=== PATIENT | male | born 1975 | race African-American/Black ===

== ENCOUNTER 2017-08-09 13:58 | Emergency (ER) | payer MEDICAID, OTHER ==
[~2017-08-09] VITALS: Ht 193 cm; Wt 169.1 kg
[~2017-08-09 13:58] MED LIST: ASPI-556 PO; CARV25 PO; FURO40 PO; INSU100V12 SQ; KDUR10 PO; LISI-662 PO
[2017-08-09] MEDS ORDERED: INSLAN SQ (14:22)
[2017-08-09] MEDS ORDERED: CHLO4TAB96 PO (14:22)
[2017-08-09] MEDS ORDERED: SIMV-259 PO (14:22)
[2017-08-09 14:24] LABS: GLUCOSE,POINT OF CARE 234 MG/DL (70-110)
[2017-08-09 16:51] LABS: BASOPHILS % (AUTO) 0.6 % (0.0-2.0); EOSINOPHILS % (AUTO) 2.9 % (1.0-6.0); HEMATOCRIT 40.6 % (41-53); HEMOGLOBIN 13.7 g/dL (13.5-17.5); LYMPHOCYTES # (AUTO) 1.6 K/uL (1.0-4.8); LYMPHOCYTES % (AUTO) 27.2 % (22.0-44.0); MEAN CORPUSCULAR HEMOGLOBIN 29.1 pg (26.0-34.0); MEAN CORPUSCULAR HGB CONC 33.7 G/dL (31.0-37.0); MEAN CORPUSCULAR VOLUME 87 fL (80-100); MONOCYTES # (AUTO) 0.6 K/uL (0.1-1.0); MONOCYTES % (AUTO) 9.6 % (2.0-9.0); NEUTROPHILS # (AUTO) 3.6 K/uL (1.8-7.7); NEUTROPHILS % (AUTO) 59.7 % (40.0-70.0); PLATELET COUNT (AUTO) 189 K/uL (150-450); RED BLOOD CELL COUNT(AUTO) 4.69 MIL/uL (4.50-5.90); RED CELL DISTRIBUTION WIDTH 14.3 % (11.5-14.5)
[2017-08-09] MEDS ORDERED: SODIUM CHLORIDE 0.9% 100 ML ONE (16:53)
[2017-08-09] MEDS ORDERED: IOVERSOL 350 MG/ML 150 ML VIAL ONE (16:53)
[2017-08-09 16:59] LABS: ANION GAP 6 mmol/L (8-16); CALCIUM, TOTAL 8.3 mg/dL (8.8-10.5); CARBON DIOXIDE 31 mmol/L (22-29); CHLORIDE 99 mmol/L (98-107); CREATININE 1.42 mg/dL (0.60-1.30); GLOMERULAR FILTR. RATE CALC > 60 mL/min (>60); GLUCOSE,RANDOM 179 mg/dL (70-110); POTASSIUM 4.1 mmol/L (3.5-5.1); SODIUM SERUM 136 mmol/L (136-145); UREA NITROGEN, BLOOD 21 mg/dL (7-18)
[2017-08-09 17:14] LABS: ALANINE AMINOTRANSFERASE 36 U/L (12-78); ALBUMIN 3.3 g/dL (3.4-5.0); ALKALINE PHOSPHATASE 97 U/L (46-116); ASPARTATE AMINOTRANSFERASE 20 U/L (15-37); BILIRUBIN,TOTAL 0.6 mg/dL (0.1-1.0); THYROID STIMULATING HORMONE 1.47 uIU/mL (0.36-3.74); TOTAL PROTEIN, SERUM 7.8 g/dL (6.4-8.2)
[2017-08-09] MEDS ORDERED: SODIUM CHLORIDE 0.9% 1,000 ML IV ONE (17:15)
[2017-08-09] MEDS ORDERED: CARV12 PO (17:15)
[2017-08-09 18:03] VITALS: BP 154/97
== END 2017-08-09 18:39 | disposition home or self-care (01) ==
LOC: EMS 14:04
DX: L73.9 Follicular disorder, unspecified (principal); R59.9 Enlarged lymph nodes, unspecified; I11.0 Hypertensive heart disease with heart failure; I50.9 Heart failure, unspecified; E11.9 Type 2 diabetes mellitus without complications; E78.00 Pure hypercholesterolemia, unspecified; F19.90 Other psychoactive substance use, unspecified, uncomplicated; Z87.891 Personal history of nicotine dependence; Z79.4 Long term (current) use of insulin
CPT/HCPCS: 36415; 70491; 80053; 82962; 84443; 85025; 96360; 99285; J7030; J7050; Q9967

== ENCOUNTER 2019-09-19 21:20 | Emergency (ER) | payer OTHER ==
[~2019-09-19] VITALS: Ht 193 cm; Wt 170.4 kg
[~2019-09-19 21:20] MED LIST changes: +CARV12 PO; -CARV25 PO; +CHLO4TAB96 PO; +INSLAN SQ; -INSU100V12 SQ; -KDUR10 PO; +SIMV-259 PO
[2019-09-19] MEDS ORDERED: GABA-1181 PO (21:28)
[2019-09-19 22:10] LABS: BASOPHILS % (AUTO) 0.9 % (0.0-2.0); EOSINOPHILS % (AUTO) 1.9 % (1.0-6.0); HEMATOCRIT 40.1 % (41-53); HEMOGLOBIN 13.2 g/dL (13.5-17.5); LYMPHOCYTES # (AUTO) 2.4 K/uL (1.0-4.8); LYMPHOCYTES % (AUTO) 26.4 % (22.0-44.0); MEAN CORPUSCULAR HEMOGLOBIN 29.4 pg (26.0-34.0); MEAN CORPUSCULAR HGB CONC 32.9 G/dL (31.0-37.0); MEAN CORPUSCULAR VOLUME 90 fL (80-100); MONOCYTES # (AUTO) 0.6 K/uL (0.1-1.0); MONOCYTES % (AUTO) 6.4 % (2.0-9.0); NEUTROPHILS # (AUTO) 5.8 K/uL (1.8-7.7); NEUTROPHILS % (AUTO) 64.4 % (40.0-70.0); PLATELET COUNT (AUTO) 201 K/uL (150-450); RED BLOOD CELL COUNT(AUTO) 4.48 MIL/uL (4.50-5.90); RED CELL DISTRIBUTION WIDTH 14.3 % (11.5-14.5)
[2019-09-19 22:18] LABS: CALCIUM, TOTAL 8.3 mg/dL (8.8-10.5); CREATININE 1.67 mg/dL (0.60-1.30); POTASSIUM 3.8 mmol/L (3.5-5.1)
[2019-09-19 22:23] LABS: PROTHROMBIN TIME 10.9 SEC (9.4-11.6)
[2019-09-19 22:43] LABS: ALBUMIN 3.2 g/dL (3.4-5.0); BILIRUBIN,TOTAL 0.4 mg/dL (0.1-1.0); TOTAL PROTEIN, SERUM 7.6 g/dL (6.4-8.2)
[2019-09-19 22:50] VITALS: BP 136/75
== END 2019-09-19 23:28 | disposition home or self-care (01) ==
LOC: EMS 21:20
DX: R07.89 Other chest pain (principal); I11.0 Hypertensive heart disease with heart failure; I50.9 Heart failure, unspecified; E11.9 Type 2 diabetes mellitus without complications; F15.90 Other stimulant use, unspecified, uncomplicated; Z87.891 Personal history of nicotine dependence
CPT/HCPCS: 93005; 36415-L1; 36415-TC; 71045-TC

== ENCOUNTER 2019-12-02 20:56 | Emergency (ER) | payer OTHER ==
[~2019-12-02] VITALS: Ht 193 cm; Wt 170.4 kg
[~2019-12-02 20:56] MED LIST changes: +GABA-1181 PO
[2019-12-02 21:15] LABS: GLUCOSE,POINT OF CARE 144 MG/DL (70-110)
[2019-12-02] MEDS ORDERED: PERTUSS(ACELL),DIPH,TET VAC/PF 0.5 ML VIAL IM ONE (23:30)
[2019-12-02] MEDS ORDERED: POVIDONE-IODINE 10% 120 ML SOLUTION TP ONE (23:30)
[2019-12-02] MEDS ORDERED: HYDROCODONE/ACETAMINOPHEN 5-325 MG TABLET PO ONE (23:30)
[2019-12-02] MEDS ORDERED: LIDOCAINE 1% 10 ML VIAL INJ ONE (23:30)
[2019-12-02] MEDS ORDERED: CEPHALEXIN MONOHYDRATE 500 MG CAPSULE PO ONE (23:30)
[2019-12-03 01:47] VITALS: BP 135/83
== END 2019-12-03 02:18 | disposition home or self-care (01) ==
LOC: EMS 20:57
DX: S60.351A Superficial foreign body of right thumb, initial encounter (principal); X58.XXXA Exposure to other specified factors, initial encounter; Y93.89 Activity, other specified; Y92.89 Other specified places as the place of occurrence of the external cause; Y99.8 Other external cause status
CPT/HCPCS: 64450; 82962; 90471; 90715; 99285; J3490

== ENCOUNTER 2020-03-18 17:47 | Emergency (ER) | payer OTHER ==
[~2020-03-18] VITALS: Ht 195.6 cm; Wt 136.4 kg
[~2020-03-18 17:47] MED LIST changes: -LISI-662 PO; +LISI-894 PO
[2020-03-18 18:13] LABS: GLUCOSE,POINT OF CARE 127 MG/DL (70-110)
[2020-03-18 20:16] LABS: BASOPHILS % (AUTO) 0.9 % (0.0-2.0); EOSINOPHILS % (AUTO) 1.8 % (1.0-6.0); HEMATOCRIT 40.2 % (41-53); HEMOGLOBIN 13.5 g/dL (13.5-17.5); LYMPHOCYTES # (AUTO) 2.2 K/uL (1.0-4.8); LYMPHOCYTES % (AUTO) 27.6 % (22.0-44.0); MEAN CORPUSCULAR HEMOGLOBIN 29.8 pg (26.0-34.0); MEAN CORPUSCULAR HGB CONC 33.5 G/dL (31.0-37.0); MEAN CORPUSCULAR VOLUME 89 fL (80-100); MONOCYTES # (AUTO) 0.7 K/uL (0.1-1.0); MONOCYTES % (AUTO) 8.9 % (2.0-9.0); NEUTROPHILS # (AUTO) 4.8 K/uL (1.8-7.7); NEUTROPHILS % (AUTO) 60.8 % (40.0-70.0); PLATELET COUNT (AUTO) 203 K/uL (150-450); RED BLOOD CELL COUNT(AUTO) 4.52 MIL/uL (4.50-5.90); RED CELL DISTRIBUTION WIDTH 14.3 % (11.5-14.5)
[2020-03-18 20:32] LABS: ANION GAP 1 mmol/L (8-16); CALCIUM, TOTAL 9.5 mg/dL (8.8-10.5); CARBON DIOXIDE 31 mmol/L (22-29); CHLORIDE 98 mmol/L (98-107); CREATININE 1.29 mg/dL (0.60-1.30); GLOMERULAR FILTR. RATE CALC > 60 mL/min (>60); GLUCOSE,RANDOM 116 mg/dL (70-110); POTASSIUM 3.8 mmol/L (3.5-5.1); SODIUM SERUM 130 mmol/L (136-145); UREA NITROGEN, BLOOD 19 mg/dL (7-18)
[2020-03-18 20:35] LABS: INR 1.1 (0.9-1.1); PROTHROMBIN TIME 11.2 SEC (9.4-11.6)
[2020-03-18 20:46] LABS: B-TYPE NATRIURETIC PEPTIDE 39 pg/mL (0-100)
[2020-03-18 20:58] LABS: ALANINE AMINOTRANSFERASE 59 U/L (12-78); ALBUMIN 3.7 g/dL (3.4-5.0); ALKALINE PHOSPHATASE 91 U/L (46-116); ASPARTATE AMINOTRANSFERASE 30 U/L (15-37); BILIRUBIN,TOTAL 0.7 mg/dL (0.1-1.0); CREATINE KINASE, TOTAL ONLY 200 U/L (39-308)
[2020-03-18] MEDS ORDERED: KETOROLAC TROMETHAMINE 30 MG/ML VIAL IM ONE (21:00)
[2020-03-18 22:02] VITALS: BP 149/88
== END 2020-03-18 22:02 | disposition home or self-care (01) ==
LOC: EMS 17:47
DX: R07.89 Other chest pain (principal); I11.0 Hypertensive heart disease with heart failure; I50.9 Heart failure, unspecified; E78.00 Pure hypercholesterolemia, unspecified; E11.9 Type 2 diabetes mellitus without complications; Z87.891 Personal history of nicotine dependence; Z79.899 Other long term (current) drug therapy; Z79.82 Long term (current) use of aspirin; Z79.4 Long term (current) use of insulin
CPT/HCPCS: 93005; 99285; J1885; 36415-L1; 36415-TC; 71045-TC

== ENCOUNTER 2021-10-07 13:31 | Emergency (ER) | payer OTHER ==
[~2021-10-07] VITALS: Ht 193 cm; Wt 170.4 kg
[2021-10-07] MEDS ORDERED: SIMV-43 PO (13:41)
[2021-10-07] MEDS ORDERED: ERTU15TA PO (13:44)
[2021-10-07] MEDS ORDERED: INSU100I26 SQ (13:44)
[2021-10-07] MEDS ORDERED: POTA-92 PO (13:44)
[2021-10-07] MEDS ORDERED: SIMV-46 PO (17:14)
[2021-10-07] MEDS ORDERED: ASPI-1444 PO (17:14)
[2021-10-07 18:28] VITALS: BP 122/66
[2021-10-07] MEDS ORDERED: KETOROLAC TROMETHAMINE 30 MG/ML VIAL IM ONE (19:00)
[2021-10-07] MEDS ORDERED: BACLOFEN 10 MG TABLET PO ONE (19:00)
[2021-10-07] MEDS ORDERED: BACL10TA PO (19:02)
== END 2021-10-07 19:22 | disposition home or self-care (01) ==
LOC: EMS 13:31
DX: M25.551 Pain in right hip (principal); E11.9 Type 2 diabetes mellitus without complications; E78.00 Pure hypercholesterolemia, unspecified; I11.0 Hypertensive heart disease with heart failure; I50.9 Heart failure, unspecified; Z87.81 Personal history of (healed) traumatic fracture; Z87.828 Personal history of other (healed) physical injury and trauma
CPT/HCPCS: 99283; 82962; 73502; 96372; J1885